=== PATIENT | female | born 1980 | race Caucasian/White ===

== ENCOUNTER 2016-11-11 18:01 | Emergency (ER) | payer SELFPAY ==
[~2016-11-11 18:01] MED LIST: ACTOS PO; ACTOS30 MG PO; ADVIL COLD & SI1 TA2 PO; ALBUTEROL17 GM INH; AMBIEN CR PO; AMBIEN10 MG PO; ANAFRANIL50 MG PO; ASPIRIN PO; ATARAX PO; AUGMENTIN875 M1; AURALGAN OTIC S10 M1 AD; AVANDARYL; BACTRIM DS TABL1 TA1 PO; BUSPAR PO; BUSPIRONE HCL; CIPRO PO; CLARITIN10 MG PO; FLEXERIL10 MG; GLUCOPHAGE XR500 MG PO; GLUCOTROL PO; INVEGA PO; JANUVIA50 MG; LAMICTAL PO; LAMICTAL150 MG; LEVIMIR; LIPITOR20 MG; LORTAB 7.5-5001 TAB PO; MECLIZINE HCL25 M1; MILK THISTLE PO; NABUMETONE PO; NAPROSYN500 MG PO; NEURONTIN300 MG; NEURONTIN800 MG PO; PANTOPRAZOLE SO40 MG; PROZAC PO; QUETIAPINE FUM100 MG PO; REMERON PO; SEROQUEL XR300 MG PO; SEROQUEL300 MG; TRAZODONE PO; TRIPLE ANTIBIOT14 GM; VICODIN PO; VOL-PLUS TABLE1 EACH; VOLTAREN50 MG PO; WAL-PROFEN200 M2; ZOFRANODT; [UNRECOGNIZED DRUG - OTHER]; [UNRECOGNIZED DRUG - OTHER]; [UNRECOGNIZED DRUG - REMARK]
[2016-11-11] MEDS ORDERED: HUMALOG MI100 UNIT/4 (18:03)
[2016-11-11] MEDS ORDERED: NEURONTIN100 MG (18:03)
[2016-11-11] MEDS ORDERED: KLONOPIN (18:03)
== END 2016-11-11 19:28 | disposition home or self-care (01) ==
LOC: SED 18:01
DX: R73.9 Hyperglycemia, unspecified (principal); F41.9 Anxiety disorder, unspecified; R42 Dizziness and giddiness; F17.200 Nicotine dependence, unspecified, uncomplicated
CPT/HCPCS: 82947; 99283